=== PATIENT | female | born 1995 | race Caucasian/White ===

== ENCOUNTER 2018-07-13 13:06 | Emergency (ER) | payer MEDICAID ==
[2018-07-13 13:28] VITALS: RESP 18
--- NOTE | 2018-07-13 14:33 | RAD ---
Date of service: 07/13/2018 PROCEDURE: Left Foot Radiographs. HISTORY: Pain to the dorsal foot COMPARISON: None. TECHNIQUE: 3 views obtained. FINDINGS: BONES: Bone alignment and mineralization are normal. There is no acute displaced fracture or bone destruction. JOINTS: Normal. SOFT TISSUES: Normal. OTHER FINDINGS: None. IMPRESSION: Normal examination.
--- NOTE | 2018-07-13 14:37 | C.PDOC ---
History Of Present Illness 23 y/o female presents to the ED with 1 month history of left foot pain, associated with mild redness and swelling over the top of foot. Patient states the pain comes and goes, but has been more consistent over the past several days. In addition patient complains of left sided low back pain which radiates down the left leg, onset yesterday. Patient reports she was at the gym lifting weights, and may have injured the back. Otherwise she denies any recent trauma, fever, rash, numbness, weakness, extremity weakness, abdominal pain, saddle anesthesia, or bowel/urinary incontinence. Time Seen by Provider: 07/13/18 13:19 Chief Complaint (Nursing): Lower Extremity Problem/Injury History Per: Patient History/Exam Limitations: no limitations Onset/Duration Of Symptoms: Days Current Symptoms Are (Timing): Still Present Pain Scale Rating Of: 4 Recent travel outside of the [place]: No Past Medical History Reviewed: Historical Data, Nursing Documentation, Vital Signs Vital Signs: Last Vital Signs Temp 97.9 F 07/13/18 13:13 Pulse 91 H 07/13/18 13:13 Resp 18 07/13/18 13:13 BP 139/94 H 07/13/18 13:13 Pulse Ox 99 07/13/18 13:13 - Medical History PMH: No Chronic Diseases Family History: States: No Known Family Hx - Social History Hx Alcohol Use: No Hx Substance Use: No - Immunization History Hx Tetanus Toxoid Vaccination: No Hx Influenza Vaccination: No Hx Pneumococcal Vaccination: No Review Of Systems Except As Marked, All Systems Reviewed And Found Negative. Constitutional: Negative for: Fever, Chills Respiratory: Negative for: Shortness of Breath Gastrointestinal: Negative for: Vomiting, Abdominal Pain Genitourinary: Negative for: Dysuria, Incontinence Musculoskeletal: Positive for: Back Pain, Leg Pain, Foot Pain Skin: Positive for: Other (redness/swelling to left foot). Negative for: Rash Neurological: Negative for: Weakness, Numbness Physical Exam - Physical Exam Appears: Well, Non-toxic, No Acute Distress Skin: Warm, Dry, No Pale, No Rash Head: Atraumatic, Normacephalic Eye(s): bilateral: Normal Inspection Ear(s): Bilateral: Normal Oral Mucosa: Moist Throat: No Erythema Neck: Normal ROM, Supple Chest: Symmetrical, No Tenderness Cardiovascular: Rhythm Regular, No Friction Rub, No Murmur Respiratory: No Accessory Muscle Use, No Rales, No Rhonchi, No Stridor, No Wheezing, Other (Speaking in complete sentences) Gastrointestinal/Abdominal: Bowel Sounds (active), Soft, No Tenderness Back: No CVA Tenderness, No Vertebral Tenderness, Paraspinal Tenderness (Mild left paralumbar tenderness) Extremity: Normal ROM (x 4), No Deformity, Swelling (+mild area of erythema over the 3-5 metatarsals of left foot appears swollen and tender; no induration or fluctuance), Other (No open wounds) Pulses: Left Dorsalis Pedis: Normal, Right Dorsalis Pedis: Normal Neurological/Psych: Oriented x3, Normal Speech, Normal Motor, Normal Sensation ED Course And Treatment O2 Sat by Pulse Oximetry: 99 (RA) Pulse Ox Interpretation: Normal - Other Rad Foot XR X-Ray: Read By Radiologist Interpretation: Accession No. : [id number]. Patient Name / ID : JUAN M BENNETT / [id number]. Exam Date : 07/13/2018 13:58:04 ( Approved ). Study Comment : Sex / Age : F / 23Y. Creator : Kaylah Lares MD. Dictator : Kaylah Lares MD. Executive Producer : Automatic Centrifugal Station Operator : Kaylah Lares MD. Approver2 : Report Date : 07/13/2018 14:30:03. My Comment : . Date of service: 07/13/2018. PROCEDURE: Left Foot Radiographs. HISTORY: Pain to the dorsal foot. COMPARISON: None. TECHNIQUE: 3 views obtained. FINDINGS: BONES: Bone alignment and mineralization are normal. There is no acute displaced fracture or bone destruction. JOINTS: Normal. SOFT TISSUES: Normal. OTHER FINDINGS: None. IMPRESSION: Normal examination. Medical Decision Making Medical Decision Making: Initial Plan: - Left foot x-ray - 60 mg PO prednisone - 800 mg PO motrin On re-exam, the patient reports improvement of symptoms. Lungs are CTA, heart is RRR, abdomen is soft, non-tender and the patient is tolerating PO well. Follow up with the medical doctor within 1-2 days, Return if worsened. Disposition - Disposition Referrals: at [facility] [Outside] Disposition: HOME/ ROUTINE Disposition Time: 15:25 Condition: GOOD Additional Instructions: Follow up with the medical doctor within 1-2 days. Return if worsened. Prescriptions: Cyclobenzaprine [Flexeril] 5 mg PO TID #21 tab Ibuprofen [Motrin Tab] 800 mg PO TID #20 tab predniSONE [Prednisone] 20 mg PO BID #10 tab Instructions: Gout (DC) Forms: [employer] (Mongolian), Work Excuse - Clinical Impression Clinical Impression: Gout attack, Low back pain - PA / MIND READER / Resident Statement MD/DO has reviewed & agrees with the documentation as recorded. - Scribe Statement The provider has reviewed the documentation as recorded by the Luisito Gutierrez All medical record entries made by the Luibdaren were at my direction and personally dictated by me. I have reviewed the chart and agree that the record accurately reflects my personal performance of the history, physical exam, medical decision making, and the department course for this patient. I have also personally directed, reviewed, and agree with the discharge instructions and disposition.
[2018-07-13 15:39] VITALS: BP 118/81; PULSE 99; TEMP 98.2
[2018-07-17 04:10] VITALS: O2SAT 99
== END 2018-07-13 15:54 | disposition home or self-care (01) ==
LOC: C.ER 13:06
DX: M10.9 Gout, unspecified (principal); M54.5 Low back pain